=== PATIENT | male | born 1955 | race Caucasian/White ===

== ENCOUNTER 2017-11-19 15:22 | Inpatient (IN) | payer OTHER ==
[2017-11-19] MEDS: SOD CHLORIDE 0.9% 500 ML IV (16:56)
[2017-11-19 17:17] LABS: ADD MAN DIFF? NO
[2017-11-19 17:19] LABS: BASOPHILS % 0.3 % (0.0-2.0); EOSINOPHILS # 0.1 10^3/ul (0.0-0.5); HEMOGLOBIN 15.8 g/dl (14.0-18.0); LYMPHOCYTES # 2.7 10^3/ul (0.8-2.9); LYMPHOCYTES % 20.3 % (15.0-51.0); MEAN CORPUSCULAR HEMOGLOBIN 30.4 pg (29.0-33.0); MEAN CORPUSCULAR HGB CONC 34.3 g/dl (32.0-37.0); MEAN CORPUSCULAR VOLUME 88.5 fl (82.0-101.0); MEAN PLATELET VOLUME 9.4 fl (7.4-10.4); MONOCYTE # 0.7 10^3/ul (0.3-0.9); MONOCYTES % 5.2 % (0.0-11.0); NEUTROPHIL # 9.6 10^3/ul (1.6-7.5); NEUTROPHILS % 72.5 % (39.0-77.0); PLATELET COUNT 367 10^3/UL (140-415); RED CELL DISTRIBUTION WIDTH 11.9 % (11.5-14.5)
[2017-11-19 17:19] LABS: WHITE BLOOD COUNT 13.2 10^3/ul (4.8-10.8)
[2017-11-19 17:25] LABS: ADD UMIC NO; UR ASCORBIC ACID 40 mg/dL (NEGATIVE); UR BILIRUBIN (Dip) NEGATIVE (NEGATIVE); UR BLOOD (Dip) NEGATIVE (NEGATIVE); UR CLARITY CLEAR (CLEAR); UR COLOR YELLOW (YELLOW); UR GLUCOSE (Dip) NEGATIVE (NEGATIVE); UR KETONES (Dip) 1+ mg/dL (NEGATIVE); UR LEUKOCYTE ESTERASE (Dip) NEGATIVE Leu/ul (NEGATIVE); UR NITRITE (Dip) NEGATIVE (NEGATIVE); UR SPECIFIC GRAVITY (Dip) 1.025 (1.003-1.030); UR TOTAL PROTEIN (Dip) NEGATIVE (NEGATIVE); UR UROBILINOGEN (Dip) NEGATIVE (NEGATIVE)
[2017-11-19 17:36] LABS: ALANINE AMINOTRANSFERASE 36 IU/L (13-69); ALBUMIN 4.6 g/dl (3.3-4.9); ALBUMIN/GLOBULIN RATIO 1.31; ALKALINE PHOSPHATASE 71 IU/L (42-121); ANION GAP 19 (8-16); ASPARTATE AMINO TRANSFERASE 44 IU/L (15-46); BILIRUBIN,INDIRECT 0.7 mg/dl (0-1.1); BILIRUBIN,TOTAL 0.7 mg/dl (0.2-1.3); BLOOD UREA NITROGEN 18 mg/dl (7-20); CALCIUM 9.6 mg/dl (8.4-10.2); CARBON DIOXIDE 23 mmol/L (21-31); CHLORIDE 105 mmol/L (97-110); CREATINE KINASE 754 IU/L (23-200); CREATININE 0.74 mg/dl (0.61-1.24); GLUCOSE 101 mg/dl (70-220); POTASSIUM 4.2 mmol/L (3.5-5.1); SODIUM 143 mmol/L (135-144); TOTAL PROTEIN 8.1 g/dl (6.1-8.1)
[2017-11-19 17:49] LABS: CK INDEX 0.6
[2017-11-19 17:50] LABS: CK-MB 4.17 ng/ml (0.0-2.4); TROPONIN-I < 0.012 ng/ml (0.000-0.120)
[2017-11-19 18:21] LABS: HIV 1&2 ANTIBODY NEGATIVE (NEGATIVE)
[2017-11-19 18:28] LABS: ERYTHROCYTE SEDIMENTATION RATE 32 mm/Hr (0-20)
[2017-11-19] MEDS ORDERED: ONDANSETRON 4 MG INJ IV (19:00)
[2017-11-19] MEDS ORDERED: ACETAMINOPHEN 325 MG TAB PO (19:00)
[2017-11-19] MEDS: KETOROLAC 15 MG INJ IV (19:53)
[2017-11-19 20:20] LABS: TROPONIN-I < 0.012 ng/ml (0.000-0.120)
[2017-11-20] MEDS ORDERED: NACL 0.9% 3 ML SYG IV (01:00)
[2017-11-20] MEDS ORDERED: ONDANSETRON 4 MG INJ IV (01:00)
[2017-11-20] MEDS: METHYLPRED. NA SUCC 1,000 MG in DEXTROSE 5% 50 ML IVPB (01:33)
[2017-11-20] MEDS: SOD CHLORIDE 0.9% 1,000 ML IV ×2 (01:33→08:47)
[2017-11-20] MEDS ORDERED: IMMUNE GLOBULIN (HUMAN) 6 GM INJ IV (03:00)
[2017-11-20 06:07] LABS: ADD MAN DIFF? NO
[2017-11-20 06:18] LABS: BASOPHILS % 0.2 % (0.0-2.0); EOSINOPHILS % 0.2 % (0.0-7.0); HEMATOCRIT 45.1 % (42.0-52.0); HEMOGLOBIN 15.8 g/dl (14.0-18.0); LYMPHOCYTES # 1.1 10^3/ul (0.8-2.9); LYMPHOCYTES % 12.2 % (15.0-51.0); MEAN CORPUSCULAR HEMOGLOBIN 30.7 pg (29.0-33.0); MEAN CORPUSCULAR VOLUME 87.7 fl (82.0-101.0); MEAN PLATELET VOLUME 9.5 fl (7.4-10.4); MONOCYTE # 0.1 10^3/ul (0.3-0.9); MONOCYTES % 1.3 % (0.0-11.0); NEUTROPHIL # 7.6 10^3/ul (1.6-7.5); NEUTROPHILS % 85.4 % (39.0-77.0); PLATELET COUNT 327 10^3/UL (140-415); RED BLOOD COUNT 5.14 10^6/ul (4.70-6.10); RED CELL DISTRIBUTION WIDTH 11.9 % (11.5-14.5)
[2017-11-20 06:18] LABS: WHITE BLOOD COUNT 8.9 10^3/ul (4.8-10.8)
[2017-11-20 06:40] LABS: ALANINE AMINOTRANSFERASE 36 IU/L (13-69); ALBUMIN 4.4 g/dl (3.3-4.9); ALBUMIN/GLOBULIN RATIO 1.29; ALKALINE PHOSPHATASE 62 IU/L (42-121); ANION GAP 20 (8-16); ASPARTATE AMINO TRANSFERASE 40 IU/L (15-46); BILIRUBIN,INDIRECT 0.7 mg/dl (0-1.1); BILIRUBIN,TOTAL 0.7 mg/dl (0.2-1.3); BLOOD UREA NITROGEN 19 mg/dl (7-20); CALCIUM 9.3 mg/dl (8.4-10.2); CARBON DIOXIDE 23 mmol/L (21-31); CHLORIDE 106 mmol/L (97-110); CREATININE 0.67 mg/dl (0.61-1.24); GLUCOSE 134 mg/dl (70-220); MAGNESIUM 2.3 mg/dl (1.7-2.5); POTASSIUM 4.2 mmol/L (3.5-5.1); SODIUM 145 mmol/L (135-144); TOTAL PROTEIN 7.8 g/dl (6.1-8.1)
[2017-11-20 07:13] LABS: HEMOGLOBIN A1C 5.5 % (0-5.9)
[2017-11-20] MEDS: ENOXAPARIN 40 MG/0.4 ML SYG SC (08:24)
[2017-11-20 20:56] LABS: RAPID PLASMA REAGIN NONREACTIVE (NR)
[2017-11-20] MEDS: IMMUNE GLOBULIN IV (21:28)
[2017-11-20] MEDS: WATER STERILE FOR IV (21:28)
[2017-11-21 00:46] LABS: CREATINE KINASE 596 IU/L (23-200)
[2017-11-21] MEDS: ACETAMINOPHEN 325 MG TAB PO ×3 (01:22→22:58)
[2017-11-21] MEDS: ENOXAPARIN 40 MG/0.4 ML SYG SC (09:00)
[2017-11-21] MEDS ORDERED: IMMUNE GLOBULIN IV (09:30)
[2017-11-21] MEDS ORDERED: WATER STERILE FOR IV (09:30)
[2017-11-21 12:01] LABS: INR 0.94; PARTIAL THROMBOPLASTIN TIME 24.7 Sec (25.0-35.0); PROTIME 12.7 Sec (11.9-14.9)
[2017-11-21] MEDS: LIDOCAINE 1% (MDV) 10 ML INJ (15:21)
[2017-11-21 17:11] LABS: CSF RBC 3000 /uL (0-0); CSF WBC 3 /cmm (0-10)
[2017-11-21 17:46] LABS: CSF CLARITY HAZY; CSF VOLUME 1.4 ml; CSF#TUBES REC'D 2
[2017-11-21 17:46] LABS: CSF COLOR PINKISH
[2017-11-21 17:47] LABS: CSF#TUBE COUNT TUBE#2
[2017-11-21 18:22] LABS: GLUCOSE,CSF 79 mg/dl (50-80)
[2017-11-21 18:22] LABS: TOTAL PROTEIN,CSF 79 mg/dl (12-60)
[2017-11-21 18:44] LABS: CSF MN% 66.6 %
[2017-11-21 18:45] LABS: CSF PMN% 33.4 %
[2017-11-21] MEDS ORDERED: METHYLPREDNISOLONE (10 MG/ML) IV SYG IV (20:30)
[2017-11-21] MEDS: WATER STERILE FOR IV (21:00)
[2017-11-21] MEDS: IMMUNE GLOBULIN IV (21:00)
[2017-11-21] MEDS: METHYLPRED. NA SUCC 1,000 MG in SOD CHLORIDE 0.9% 100 ML IV (22:25)
[2017-11-22] MEDS: ACETAMINOPHEN 325 MG TAB PO ×2 (05:03→09:55)
[2017-11-22 05:34] LABS: ADD MAN DIFF? NO
[2017-11-22 05:38] LABS: ABNORMAL IP MESSAGE 1; BASOPHILS % 0.2 % (0.0-2.0); HEMOGLOBIN 14.9 g/dl (14.0-18.0); LYMPHOCYTES # 0.3 10^3/ul (0.8-2.9); LYMPHOCYTES % 5.3 % (15.0-51.0); MEAN CORPUSCULAR HEMOGLOBIN 30.3 pg (29.0-33.0); MEAN CORPUSCULAR HGB CONC 34.7 g/dl (32.0-37.0); MEAN CORPUSCULAR VOLUME 87.4 fl (82.0-101.0); MEAN PLATELET VOLUME 9.8 fl (7.4-10.4); MONOCYTE # 0.1 10^3/ul (0.3-0.9); NEUTROPHIL # 5.6 10^3/ul (1.6-7.5); NEUTROPHILS % 93.2 % (39.0-77.0); PLATELET COUNT 272 10^3/UL (140-415); POSITIVE DIFF @See below; RED BLOOD COUNT 4.92 10^6/ul (4.70-6.10); RED CELL DISTRIBUTION WIDTH 11.9 % (11.5-14.5)
[2017-11-22 05:38] LABS: WHITE BLOOD COUNT 6.1 10^3/ul (4.8-10.8)
[2017-11-22 06:18] LABS: ALANINE AMINOTRANSFERASE 34 IU/L (13-69); ALBUMIN 4.2 g/dl (3.3-4.9); ALKALINE PHOSPHATASE 59 IU/L (42-121); ANION GAP 18 (8-16); ASPARTATE AMINO TRANSFERASE 38 IU/L (15-46); BILIRUBIN,INDIRECT 0.7 mg/dl (0-1.1); BILIRUBIN,TOTAL 0.7 mg/dl (0.2-1.3); BLOOD UREA NITROGEN 22 mg/dl (7-20); CALCIUM 8.3 mg/dl (8.4-10.2); CARBON DIOXIDE 27 mmol/L (21-31); CHLORIDE 101 mmol/L (97-110); CREATININE 0.61 mg/dl (0.61-1.24); GLUCOSE 164 mg/dl (70-220); POTASSIUM 4.1 mmol/L (3.5-5.1); SODIUM 142 mmol/L (135-144); TOTAL PROTEIN 9.4 g/dl (6.1-8.1)
[2017-11-22] MEDS: ENOXAPARIN 40 MG/0.4 ML SYG SC (09:00)
[2017-11-22] MEDS: HYDROCODONE/APAP (5/325) TAB PO (11:02)
[2017-11-22] MEDS: IMMUNE GLOBULIN IV (21:59)
[2017-11-22] MEDS: WATER STERILE FOR IV (21:59)
[2017-11-23] MEDS: HYDROCODONE/APAP (5/325) TAB PO ×2 (00:01→02:57)
[2017-11-23] MEDS: METHYLPRED. NA SUCC 1,000 MG in SOD CHLORIDE 0.9% 100 ML IV (01:14)
[2017-11-23] MEDS ORDERED: HYDROCODONE/APAP (5/325) TAB PO (02:35)
[2017-11-23] MEDS: ENOXAPARIN 40 MG/0.4 ML SYG SC (12:49)
[2017-11-23] MEDS: LORAZEPAM 1 MG TAB PO (16:34)
[2017-11-23] MEDS: WATER STERILE FOR IV (21:15)
[2017-11-23] MEDS: IMMUNE GLOBULIN IV (21:15)
[2017-11-24] MEDS: METHYLPRED. NA SUCC 1,000 MG in SOD CHLORIDE 0.9% 100 ML IV ×2 (01:29→21:30)
[2017-11-24] MEDS: HYDROCODONE/APAP (5/325) TAB PO (03:20)
[2017-11-24] MEDS: hydrALAzine 20 MG INJ IV (04:59)
[2017-11-24] MEDS: ENOXAPARIN 40 MG/0.4 ML SYG SC (08:44)
[2017-11-24] MEDS: ACETAMINOPHEN 325 MG TAB PO (14:51)
[2017-11-24 18:41] LABS: EBV VIRAL CAPSID AG AB (IGM) <36.00 U/mL
[2017-11-24] MEDS: IMMUN GLOB IV (21:05)
[2017-11-24] MEDS: DEXTROSE 5% IV (21:05)
[2017-11-25] MEDS: ENOXAPARIN 40 MG/0.4 ML SYG SC (08:51)
[2017-11-25] MEDS: METHYLPRED. NA SUCC 1,000 MG in SOD CHLORIDE 0.9% 100 ML IV (21:25)
[2017-11-26] MEDS: ENOXAPARIN 40 MG/0.4 ML SYG SC (09:22)
[2017-11-26] MEDS: METHYLPRED. NA SUCC 1,000 MG in SOD CHLORIDE 0.9% 100 ML IV (21:53)
[2017-11-27] MEDS: ENOXAPARIN 40 MG/0.4 ML SYG SC (08:46)
[2017-11-27 17:56] LABS: ACETYLCHOLINE RECEPTOR AB <0.30 nmol/L
[2017-11-27] MEDS: METHYLPRED. NA SUCC 1,000 MG in SOD CHLORIDE 0.9% 100 ML IV (21:26)
[2017-11-28] MEDS: ENOXAPARIN 40 MG/0.4 ML SYG SC (08:41)
[2017-11-28] MEDS: METHYLPRED. NA SUCC 1,000 MG in SOD CHLORIDE 0.9% 100 ML IV (22:28)
[2017-11-29 06:50] LABS: CREATINE KINASE 90 IU/L (23-200)
[2017-11-29 07:04] LABS: ANION GAP 12 (8-16); BLOOD UREA NITROGEN 33 mg/dl (7-20); CALCIUM 8.3 mg/dl (8.4-10.2); CARBON DIOXIDE 26 mmol/L (21-31); CHLORIDE 107 mmol/L (97-110); GLUCOSE 178 mg/dl (70-220); MAGNESIUM 2.1 mg/dl (1.7-2.5); PHOSPHORUS 4.4 mg/dl (2.5-4.9); POTASSIUM 4.7 mmol/L (3.5-5.1); SODIUM 140 mmol/L (135-144)
[2017-11-29] MEDS: ENOXAPARIN 40 MG/0.4 ML SYG SC (09:25)
[2017-11-29] MEDS: DOCUSATE SODIUM 100 MG CAP PO (13:05)
[2017-11-29] MEDS: BISACODYL (EC) 5 MG TAB PO (13:05)
[2017-11-30] MEDS: ENOXAPARIN 40 MG/0.4 ML SYG SC (08:19)
[2017-12-01] MEDS: ENOXAPARIN 40 MG/0.4 ML SYG SC (08:35)
[2017-12-01] MEDS: ACETAMINOPHEN 325 MG TAB PO (21:51)
[2017-12-02] MEDS: ENOXAPARIN 40 MG/0.4 ML SYG SC (10:03)
== END 2017-12-02 21:05 | DRG 558 ==
LOC: TEL 18:56 → ICU 11-21 10:32 → TEL 11-22 15:35 → FTE 15:22 → MS2 11-26 23:12
PROC: 009U3ZX Drainage of Spinal Canal, Percutaneous Approach, Diagnostic (ICD-10-PCS; principal; 2017-11-21)
PROC: B01BZZZ Fluoroscopy of Spinal Cord (ICD-10-PCS; 2017-11-21)
DX: M60.003 Infective myositis, unspecified right leg (principal); M60.004 Infective myositis, unspecified left leg; M60.000 Infective myositis, unspecified right arm; M60.001 Infective myositis, unspecified left arm; M60.89 Other myositis, multiple sites; B97.89 Other viral agents as the cause of diseases classified elsewhere; J06.9 Acute upper respiratory infection, unspecified; R47.1 Dysarthria and anarthria
CPT/HCPCS: 36415; 70450; 71045; 73220; 80048; 80053; 81003; 82550; 82553; 82945; 82962; 83036; 83519; 83735; 83874; 84100; 84157; 84166; 84443; 84484; 85025; 85610; 85651; 85730; 86592; 86664; 86703; 87275; 87276; 87279; 87280; 87496; 89051; 90283; 93005; 94150; 94770; 96372; 96374; 96375; 97110; 97116; 97163; 97165; 97530; 97535; 99285-25; J1566

== ENCOUNTER 2017-12-02 21:15 | Inpatient (IN) | payer OTHER ==
[2017-12-02] MEDS ORDERED: LACTULOSE 30ML CUP PO (23:30)
[2017-12-02] MEDS ORDERED: BISACODYL 10 MG SUPP PR (23:30)
[2017-12-02] MEDS ORDERED: MAGNESIUM HYDROXIDE 30ML CUP PO (23:30)
[2017-12-03] MEDS ORDERED: hydrALAzine 20 MG INJ IV (00:30)
[2017-12-03] MEDS ORDERED: HYDROCODONE/APAP (5/325) TAB PO ×2 (00:30)
[2017-12-03] MEDS ORDERED: LORAZEPAM 1 MG TAB PO (00:30)
[2017-12-03] MEDS ORDERED: NACL 0.9% 3 ML SYG IV (00:30)
[2017-12-03] MEDS ORDERED: ONDANSETRON 4 MG INJ IV (00:30)
[2017-12-03] MEDS ORDERED: DOCUSATE SODIUM 100 MG CAP PO (00:30)
[2017-12-03] MEDS ORDERED: BISACODYL (EC) 5 MG TAB PO (00:30)
[2017-12-03 01:29] LABS: ADD UMIC NO; UR ASCORBIC ACID 40 mg/dL (NEGATIVE); UR BILIRUBIN (Dip) NEGATIVE (NEGATIVE); UR BLOOD (Dip) NEGATIVE (NEGATIVE); UR CLARITY CLEAR (CLEAR); UR COLOR YELLOW (YELLOW); UR GLUCOSE (Dip) NEGATIVE (NEGATIVE); UR KETONES (Dip) NEGATIVE (NEGATIVE); UR LEUKOCYTE ESTERASE (Dip) NEGATIVE Leu/ul (NEGATIVE); UR NITRITE (Dip) NEGATIVE (NEGATIVE); UR SPECIFIC GRAVITY (Dip) 1.023 (1.003-1.030); UR TOTAL PROTEIN (Dip) NEGATIVE (NEGATIVE); UR UROBILINOGEN (Dip) 1+ mg/dL (NEGATIVE)
[2017-12-03 06:39] LABS: ADD MAN DIFF? NO
[2017-12-03 06:47] LABS: BASOPHILS % 0.3 % (0.0-2.0); EOSINOPHILS # 0.1 10^3/ul (0.0-0.5); HEMATOCRIT 32.8 % (42.0-52.0); HEMOGLOBIN 11.9 g/dl (14.0-18.0); LYMPHOCYTES # 2.7 10^3/ul (0.8-2.9); LYMPHOCYTES % 34.4 % (15.0-51.0); MEAN CORPUSCULAR HEMOGLOBIN 30.8 pg (29.0-33.0); MEAN CORPUSCULAR HGB CONC 36.3 g/dl (32.0-37.0); MEAN PLATELET VOLUME 10.3 fl (7.4-10.4); MONOCYTE # 0.5 10^3/ul (0.3-0.9); MONOCYTES % 6.6 % (0.0-11.0); NEUTROPHIL # 4.3 10^3/ul (1.6-7.5); NEUTROPHILS % 53.7 % (39.0-77.0); PLATELET COUNT 185 10^3/UL (140-415); RED BLOOD COUNT 3.86 10^6/ul (4.70-6.10); RED CELL DISTRIBUTION WIDTH 11.9 % (11.5-14.5)
[2017-12-03 07:09] LABS: ALANINE AMINOTRANSFERASE 217 IU/L (13-69); ALBUMIN 2.8 g/dl (3.3-4.9); ALBUMIN/GLOBULIN RATIO 0.77; ALKALINE PHOSPHATASE 43 IU/L (42-121); ANION GAP 10 (8-16); ASPARTATE AMINO TRANSFERASE 99 IU/L (15-46); BILIRUBIN,INDIRECT 0.9 mg/dl (0-1.1); BILIRUBIN,TOTAL 0.9 mg/dl (0.2-1.3); BLOOD UREA NITROGEN 19 mg/dl (7-20); CALCIUM 8.2 mg/dl (8.4-10.2); CARBON DIOXIDE 28 mmol/L (21-31); CHLORIDE 105 mmol/L (97-110); CREATININE 0.64 mg/dl (0.61-1.24); GLUCOSE 95 mg/dl (70-220); POTASSIUM 4.3 mmol/L (3.5-5.1); SODIUM 139 mmol/L (135-144); TOTAL PROTEIN 6.4 g/dl (6.1-8.1)
[2017-12-03] MEDS: DOCUSATE SODIUM 100 MG CAP PO ×2 (10:05→20:34)
[2017-12-03] MEDS: ENOXAPARIN 40 MG/0.4 ML SYG SC (10:09)
[2017-12-03] MEDS: SENNA TAB PO (20:35)
[2017-12-04] MEDS: DOCUSATE SODIUM 100 MG CAP PO ×2 (08:46→20:28)
[2017-12-04] MEDS: SENNA TAB PO (20:28)
[2017-12-05 06:44] LABS: HAAIG REFLEX REFLEX FILED
[2017-12-05 06:52] LABS: ADD MAN DIFF? NO
[2017-12-05 06:55] LABS: BASOPHILS % 0.3 % (0.0-2.0); EOSINOPHILS # 0.1 10^3/ul (0.0-0.5); EOSINOPHILS % 1.4 % (0.0-7.0); HEMATOCRIT 35.6 % (42.0-52.0); HEMOGLOBIN 12.6 g/dl (14.0-18.0); LYMPHOCYTES # 2.8 10^3/ul (0.8-2.9); LYMPHOCYTES % 35.5 % (15.0-51.0); MEAN CORPUSCULAR HEMOGLOBIN 30.5 pg (29.0-33.0); MEAN CORPUSCULAR HGB CONC 35.4 g/dl (32.0-37.0); MEAN CORPUSCULAR VOLUME 86.2 fl (82.0-101.0); MEAN PLATELET VOLUME 10.1 fl (7.4-10.4); MONOCYTE # 0.5 10^3/ul (0.3-0.9); MONOCYTES % 6.4 % (0.0-11.0); NEUTROPHIL # 4.2 10^3/ul (1.6-7.5); NUCLEATED RED BLOOD CELLS% 0.3 /100WBC (0.0-0.0); PLATELET COUNT 227 10^3/UL (140-415); RED BLOOD COUNT 4.13 10^6/ul (4.70-6.10); RED CELL DISTRIBUTION WIDTH 12.8 % (11.5-14.5)
[2017-12-05 06:55] LABS: WHITE BLOOD COUNT 7.9 10^3/ul (4.8-10.8)
[2017-12-05 07:09] LABS: ALANINE AMINOTRANSFERASE 337 IU/L (13-69); ALBUMIN 3.4 g/dl (3.3-4.9); ALBUMIN/GLOBULIN RATIO 0.87; ALKALINE PHOSPHATASE 51 IU/L (42-121); ANION GAP 13 (8-16); ASPARTATE AMINO TRANSFERASE 152 IU/L (15-46); BILIRUBIN,INDIRECT 0.9 mg/dl (0-1.1); BILIRUBIN,TOTAL 0.9 mg/dl (0.2-1.3); BLOOD UREA NITROGEN 16 mg/dl (7-20); CALCIUM 8.6 mg/dl (8.4-10.2); CARBON DIOXIDE 30 mmol/L (21-31); CHLORIDE 104 mmol/L (97-110); CREATININE 0.68 mg/dl (0.61-1.24); GLUCOSE 101 mg/dl (70-220); POTASSIUM 4.7 mmol/L (3.5-5.1); SODIUM 142 mmol/L (135-144); TOTAL PROTEIN 7.3 g/dl (6.1-8.1)
[2017-12-05 07:12] LABS: CREATINE KINASE 109 IU/L (23-200)
[2017-12-05 07:24] LABS: CK INDEX 3.4
[2017-12-05 07:25] LABS: CK-MB 3.69 ng/ml (0.0-2.4); TROPONIN-I < 0.012 ng/ml (0.000-0.120)
[2017-12-05 07:41] LABS: HEPATITIS B SURFACE ANTIGEN NEGATIVE (NEGATIVE)
[2017-12-05 08:00] LABS: HEPATITIS C VIRAL ANTIBODY NEGATIVE (NEGATIVE)
[2017-12-05 08:12] LABS: ERYTHROCYTE SEDIMENTATION RATE 86 mm/Hr (0-20)
[2017-12-05 09:07] LABS: HEPATITIS B CORE ANTIBODY REACTIVE (NEGATIVE)
[2017-12-05] MEDS: DOCUSATE SODIUM 100 MG CAP PO ×2 (09:32→20:33)
[2017-12-05] MEDS: SENNA TAB PO (20:33)
[2017-12-06] MEDS: DOCUSATE SODIUM 100 MG CAP PO ×2 (09:10→21:13)
[2017-12-06] MEDS: SENNA TAB PO (21:13)
[2017-12-07] MEDS: DOCUSATE SODIUM 100 MG CAP PO ×2 (09:33→20:24)
[2017-12-07] MEDS: ACETAMINOPHEN 325 MG TAB PO ×2 (09:33→20:24)
[2017-12-07 16:46] LABS: PROLACTIN 13.9 ng/mL (2.0-18.0)
[2017-12-07] MEDS: SENNA TAB PO (20:24)
[2017-12-08] MEDS: DOCUSATE SODIUM 100 MG CAP PO (08:51)
[2017-12-11 17:16] LABS: FREE TESTOSTERONE 32.3 pg/mL (35.0-155.0); TESTOSTERONE, TOTAL 208 ng/dL (250-1100)
== END 2017-12-08 13:30 | disposition home health service (06) | DRG 547 ==
LOC: VRC 21:15
PROC: F07Z5FZ Bed Mobility Treatment using Assistive, Adaptive, Supportive or Protective Equipment (ICD-10-PCS; principal; 2017-12-03)
PROC: F07Z8FZ Transfer Training Treatment using Assistive, Adaptive, Supportive or Protective Equipment (ICD-10-PCS; 2017-12-03)
PROC: F07Z9FZ Gait Training/Functional Ambulation Treatment using Assistive, Adaptive, Supportive or Protective Equipment (ICD-10-PCS; 2017-12-03)
PROC: F08Z2FZ Grooming/Personal Hygiene Treatment using Assistive, Adaptive, Supportive or Protective Equipment (ICD-10-PCS; 2017-12-03)
PROC: F08Z1FZ Dressing Techniques Treatment using Assistive, Adaptive, Supportive or Protective Equipment (ICD-10-PCS; 2017-12-03)
PROC: F08Z0FZ Bathing/Showering Techniques Treatment using Assistive, Adaptive, Supportive or Protective Equipment (ICD-10-PCS; 2017-12-03)
DX: G72.49 Other inflammatory and immune myopathies, not elsewhere classified (principal); M54.5 Low back pain; R74.8 Abnormal levels of other serum enzymes; R74.0 Nonspecific elevation of levels of transaminase and lactic acid dehydrogenase [LDH]; R20.0 Anesthesia of skin
CPT/HCPCS: 70450; 76700; 80053; 81003; 82550; 82553; 84146; 84403; 84484; 85025; 85651; 86704; 86709; 86803; 87081; 87086; 87340; 93970; 97110; 97112; 97116; 97163; 97167; 97530; 97535; 97542